=== PATIENT | female | born 1970 | race Two or more races ===

== ENCOUNTER 2016-07-10 13:48 | Emergency (ER) | payer MEDICAID ==
[2016-07-10 13:56] VITALS: TEMP 97.9
--- NOTE | 2016-07-10 15:13 | CPEKG ---
Heart Rate: 74 RR Interval: 811 QRSD Interval: 98 QT Interval: 404 QTC Interval: 449 QRS Franklin: 25 T Wave Franklin: 8 EKG Severity - ABNORMAL ECG - EKG Impression: NSR with artifact EKG Impression: BORDERLINE INFERIOR Q WAVES Electronically Signed By: Dale Kramer 10-Jul-2016 15:54:12
--- NOTE | 2016-07-10 15:15 | UCPHY ---
H & P Time Seen by Provider: 07/10/16 14:55 Patient Type: New HPI/ROS: CHIEF COMPLAINT: I have high blood pressure HISTORY OF PRESENT ILLNESS: 45-year-old female history of hypertension awoke this morning feeling anxious, was experiencing carpal pedal spasms and paresthesias bilateral hands and feet, hyperventilating. She took her blood pressure with a systolic reading of 130. She then took her blood pressure 5 minutes later and had a systolic 140. She therefore came to the Urgent Care for evaluation. she is currently asymptomatic.At no point did she experience: Chest pain, back pain, syncope or near syncope, nausea, vomiting, diaphoresis. She has no personal or family history of premature coronary artery disease, no family or personal history of thromboembolic disorder. REVIEW OF SYSTEMS: A ten point review of systems was performed and is negative with the exception of the items mentioned in the HPI PAST MEDICAL & SURGICAL HISTORY: Hypertension. SOCIAL HISTORY: nonsmoker. No drug use. No cocaine use. FAMILY HISTORY: No family history of premature coronary artery disease or thromboembolic disorder PHYSICAL EXAM (Prior to examination, patient consented to physical exam, hands were washed and my usual and customary physical exam procedures followed) 1) GENERAL: Well-developed, well-nourished, alert and oriented. Appears to be in no acute distress. 2) HEAD: Normocephalic, atraumatic 3) HEENT: Pupils equal, round, reactive to light bilaterally. Sclera anicteric. 4) NECK: Full range of motion, no meningeal signs. 5) LUNGS: Clear auscultation bilaterally, no wheezes, no rhonchi, no retractions. 6) HEART: Regular rate and rhythm, no murmur, no heave, no gallop. 7) ABDOMEN: No guarding, no rebound, no focal tenderness, negative McBurney's, negative Salazar's, negative Rovsing's, negative peritoneal sign, 8) MUSCULOSKELETAL: Moving all extremities, no focal areas of tenderness, no obvious trauma. No peripheral edema or discoloration. Negative Homans no palpable cord 9) BACK: No CVA tenderness, no midline vertebral tenderness, no fluctuance, no step-off, no obvious trauma, no visual or palpable abnormality. 10) SKIN: No rash, no petechiae. 11) Psychiatric: Patient is oriented X 3, there is no agitation. DIFFERENTIAL DIAGNOSIS: In no particular order including but limited to hypertensive urgency, hypertensive crisis, [place], acute anxiety attack Smoking Status: Never smoked Constitutional: Initial Vital Signs Temperature (C) 36.6 C 07/10/16 13:50 Heart Rate 85 07/10/16 13:50 Respiratory Rate 16 07/10/16 13:50 Blood Pressure 171/111 H 07/10/16 13:50 O2 Sat (%) 97 07/10/16 13:50 O2 Delivery Mode Room Air Allergies/Adverse Reactions: No Known Allergies Allergy (Unverified 07/10/16 13:56) Home Medications: Medication Instructions Recorded Lisinopril 07/10/16 MAGNESIUM 07/10/16 MDM/Departure - MDM ED Course/Re-evaluation: This patient has been re-evaluated with serial exams most recently at 3:50 p.m.. She remains asymptomatic. We discussed her laboratory studies. Doubt hypertensive urgency or hypertensive crisis. She has no evidence of end-organ damage. Doubt [place]. Discussed case Dr. Dale Kramer in urgent care. Discussed possibility of acute anxiety attack. At this time recommended patient continue with her anti hypertensive medication. Recommend she keep a blood pressure diary. Recommend that if she develops new or return of symptoms she needs to seek immediate medical attention. She feels comfortable being discharged. All questions and concerns addressed by myself - Depart Disposition: Home, Routine, Self-Care Clinical Impression: Hypertension Qualifiers: Hypertension type: unspecified secondary hypertension Qualifier Code: (I15.9) Secondary hypertension, unspecified Condition: Good Instructions: Hypertension (ED) Additional Instructions: Keep a blood pressure diary. If you develop headache, chest pain, shortness of breath, go to the ER immediately for re-evaluation Referrals: KAREN JARRETT,. [Primary Care Provider] - 1-2 days without fail - PQRS PQRS Measurement: Not applicable
[2016-07-10 15:30] LABS: % IMMATURE GRANULYOCYTES 0.4 % (0.0-1.1); ABSOLUTE IMMATURE GRANULOCYTES 0.02 10^3/uL (0.00-0.10); ADD DIFF? NO; ADD MORPH? NO; ADD SCAN? NO; ATYPICAL LYMPHOCYTE FLAG 0 (0-99); FRAGMENT RBC FLAG 0 (0-99); HEMATOCRIT 42.3 % (38.0-47.0); HEMOGLOBIN 14.6 g/dL (12.6-16.3); LEFT SHIFT FLG 0 (0-99); LIPEMIA HEMOLYSIS FLAG 90 (0-99); MEAN CELL HEMOGLOBIN 32.1 pg (27.9-34.1); MEAN CELL HEMOGLOBIN CONCENTR. 34.5 g/dL (32.4-36.7); MEAN PLATELET VOLUME 9.8 fL (8.7-11.7); PLATELET CLUMPS FLAG 10 (0-99); PLATELET COUNT 236 10^3/uL (150-400); RED BLOOD CELL COUNT 4.55 10^6/uL (4.18-5.33); RED CELL DISTRIBUTION WIDTH 12.6 % (11.5-15.2)
[2016-07-10 15:39] LABS: ANION GAP 12 mEq/L (8-16); CARBON DIOXIDE 24 mEq/l (22-31); CHLORIDE 101 mEq/L (97-110); CREATININE 0.7 mg/dL (0.6-1.0); GLOMERULAR FILTRATION RATE > 60; GLUCOSE 93 mg/dL (70-100); POTASSIUM 3.7 mEq/L (3.5-5.2); SODIUM 137 mEq/L (134-144)
[2016-07-10 16:41] VITALS: BP 136/97; PULSE 70; RESP 18; O2SAT 96
== END 2016-07-10 16:41 | disposition home or self-care (01) ==
LOC: EDBD → CED 13:48
DX: I15.9 Secondary hypertension, unspecified (principal); F41.9 Anxiety disorder, unspecified; R20.9 Unspecified disturbances of skin sensation
CPT/HCPCS: 80048-PO; 84703-PO; 85025-PO; G0463-PO